=== PATIENT | female | born 1940 | race Asian ===

== ENCOUNTER 2023-09-20 17:14 | Emergency (ER) | payer MEDICARE, MEDICAID ==
[~2023-09-20] VITALS: Ht 160 cm; Wt 68.0 kg
[2023-09-20 17:23] VITALS: BP_SYST 195; PULSE 100; RESP 16; TEMP 100.4; O2SAT 97
[2023-09-20 17:44] LABS: BASOPHILS % (AUTO) 0.2 % (0.0-2.0); EOSINOPHILS # (AUTO) 0.1 K/uL (0.0-0.4); EOSINOPHILS % (AUTO) 0.4 % (0.0-4.0); HEMATOCRIT 33.4 % (36-48); HEMOGLOBIN 10.7 g/dL (12.0-16.0); LYMPHOCYTES # (AUTO) 0.6 K/uL (1.0-5.5); LYMPHOCYTES % (AUTO) 5.3 % (20.5-51.5); MEAN CORPUSCULAR HEMOGLOBIN 27 pg (27-31); MEAN CORPUSCULAR HGB CONC 32 % (32-36); MEAN CORPUSCULAR VOLUME 84 fL (79.0-98.0); MONOCYTES # (AUTO) 0.7 K/uL (0.0-1.0); MONOCYTES % (AUTO) 5.9 % (1.7-9.3); NEUTROPHILS # (AUTO) 10.4 K/uL (1.8-7.7); NEUTROPHILS % (AUTO) 88.2 % (40.0-70.0); PLATELET COUNT (AUTO) 298 K/uL (130-430); RED BLOOD CELL COUNT(AUTO) 3.98 MIL/uL (4.2-6.2); WHITE BLOOD COUNT (AUTO) 11.8 K/uL (4.8-10.8)
[2023-09-20 17:57] LABS: ALANINE AMINOTRANSFERASE 28 U/L (12-78); ALBUMIN 3.1 g/dL (3.4-4.8); ANION GAP 9 (5-15); ASPARTATE AMINOTRANSFERASE 33 U/L (10-37); CALCIUM 9.2 mg/dL (8.4-11.0); CARBON DIOXIDE 25 mmol/L (23-29); CHLORIDE 97 mmol/L (98-107); CREATININE 1.77 mg/dL (0.55-1.30); GLUCOSE 251 mg/dL (74-106); INR 0.9 (0.8-1.2); POTASSIUM 3.9 mmol/L (3.5-5.1); PROTHROMBIN TIME 9.7 SECS (9.5-12.5); SODIUM SERUM 131 mmol/L (136-145); TOTAL BILIRUBIN 0.3 mg/dL (0.0-1.0); TOTAL PROTEIN, SERUM 7.6 g/dL (6.4-8.3); UREA NITROGEN, BLOOD 39 mg/dL (8-21)
[2023-09-20 17:59] LABS: BILIRUBIN,DIRECT 0.2 mg/dL (0.0-0.3)
[2023-09-20 19:19] LABS: BILIRUBIN,URINE NEGATIVE (NEGATIVE); CLARITY/URINE CLEAR (CLEAR); COLOR,URINE YELLOW (YELLOW); GLUCOSE,URINE 1+ (NEGATIVE); KETONES,URINE NEGATIVE (NEGATIVE); LEUKOCYTE ESTERASE ,URINE TRACE (NEGATIVE); NITRITE, URINE NEGATIVE (NEGATIVE); PH,URINE 5.5 (5.0-8.0); PROTEIN URINE TRACE (NEGATIVE); UROBILINOGEN,URINE 0.2 (0.2-1.0)
[2023-09-20 19:25] LABS: BLOOD, URINE TRACE (NEGATIVE)
[2023-09-20 19:26] LABS: BACTERIA,URINE FEW /HPF (None Seen); MUCUS,URINE None Seen /LPF (None Seen); RBC,URINE NONE SEEN /HPF (0-3)
[2023-09-20 19:28] LABS: COVID19 ANTIGEN SOFIA FIA NEGATIVE (NEGATIVE)
[2023-09-20 19:29] LABS: INFLUENZA TYPE A Negative (NEGATIVE); INFLUENZA TYPE B NEGATIVE (NEGATIVE)
[2023-09-20] MEDS ORDERED: ACETAMINOPHEN 500 MG TABLET PO ONE (19:30)
[2023-09-20] MEDS ORDERED: cefTRIAXone 1 GM IVPB PREMIX 50 ML IV ONE (20:30)
[2023-09-20] MEDS ORDERED: NACL 0.9% 1,000 ML IV ONE (20:45)
[2023-09-20] MEDS ORDERED: AMLO10TA88 PO (21:03)
[2023-09-20] MEDS ORDERED: FENO145T PO (21:03)
[2023-09-20] MEDS ORDERED: BUME1TAB31 PO (21:03)
[2023-09-20] MEDS ORDERED: DIA250 PO (21:03)
[2023-09-20] MEDS ORDERED: CLOP75TA32 PO (21:03)
[2023-09-20] MEDS ORDERED: MAGN70TA2 PO (21:03)
[2023-09-20] MEDS ORDERED: REPA2TAB12 PO (21:03)
[2023-09-20] MEDS ORDERED: RIVA2.5T PO (21:03)
[2023-09-20] MEDS ORDERED: CARV12.548 PO (21:03)
[2023-09-20] MEDS ORDERED: METF-1069 PO (21:03)
[2023-09-20] MEDS ORDERED: ATOR10TA68 PO (21:03)
[2023-09-20 23:47] VITALS: BP_SYST 112; PULSE 80; RESP 20; TEMP 98.6; O2SAT 95
== END 2023-09-20 23:48 | disposition short-term general hospital (02) ==
LOC: SED 17:14
DX: R07.89 Other chest pain (principal); N39.0 Urinary tract infection, site not specified; R25.1 Tremor, unspecified; I25.10 Atherosclerotic heart disease of native coronary artery without angina pectoris; Z88.5 Allergy status to narcotic agent; Z88.6 Allergy status to analgesic agent; Z79.899 Other long term (current) drug therapy; Z20.822 Contact with and (suspected) exposure to COVID-19
CPT/HCPCS: 99285; 96365; 70450; 71045; 87426; 80076; 80048; 81001; 85025; 85610; 85730; 87040; 87086; 84484; 36415; 93005; 76376; 83605; 87804 ×2; J0696; 81000; 81015

== ENCOUNTER 2024-05-21 10:48 | Emergency (ER) | payer MEDICARE, MEDICAID ==
[~2024-05-21] VITALS: Ht 157.5 cm; Wt 59.0 kg
[~2024-05-21 10:48] MED LIST: ACET250T28 PO; AMLO10TA88 PO; ATOR10TA68 PO; BUME1TAB31 PO; CARV12.548 PO; CLOP75TA32 PO; FENO145T PO; METF-1069 PO; REPA2TAB PO; RIVA2.5T PO; [UNRECOGNIZED DRUG - CODE] PO
[2024-05-21 11:18] VITALS: BP_SYST 120; PULSE 70; RESP 16; TEMP 97.8; O2SAT 98
[2024-05-21 13:58] VITALS: BP_SYST 120; PULSE 70; RESP 16; TEMP 97.8; O2SAT 98
== END 2024-05-21 13:56 | disposition home or self-care (01) ==
LOC: SED 10:48
DX: S10.83XA Contusion of other specified part of neck, initial encounter (principal); S40.011A Contusion of right shoulder, initial encounter; S09.90XA Unspecified injury of head, initial encounter; M54.50 Low back pain, unspecified; Z88.6 Allergy status to analgesic agent; Z88.5 Allergy status to narcotic agent; Z79.899 Other long term (current) drug therapy; Z79.2 Long term (current) use of antibiotics; W18.39XA Other fall on same level, initial encounter; Y93.89 Activity, other specified; Y92.89 Other specified places as the place of occurrence of the external cause; Y99.8 Other external cause status
CPT/HCPCS: 70450-TC; 72125-TC; 72220; 73030; 99284